=== PATIENT | male | born 1965 | race Caucasian/White ===

== ENCOUNTER 2017-10-01 10:15 | Inpatient (IN) | payer BC ==
[2017-10-01 11:01] VITALS: BMI 25.8
--- NOTE | 2017-10-01 13:04 | HP ---
CIWA Score - CIWA Score Nausea/Vomitin-No Nausea/No Vomiting Muscle Tremors: 4-Moderate,w/Arms Extend Anxiety: 3 Agitation: 3 Paroxysmal Sweats: 3 Orientation: 0-Oriented Tacttile Disturbances: 0-None Auditory Disturbances: 0-None Visual Disturbances: 0-None Headache: 0-None Present CIWA-Ar Total Score: 13 Admission ROS BHS - HPI Chief Complaint: I dont know why i drink too much. Allergies/Adverse Reactions: Allergies Allergy/AdvReac Type Severity Reaction Status Date / Time cefdinir [From Omnicef] Allergy Severe Hives Verified 10/01/17 12:40 History of Present Illness: pt is a 52yr old male with a history of alcohol dependence seeking detox for treatment. Pt is [place] both ears. Exam Limitations: No Limitations - Ebola screening Have you traveled outside of the country in the last 21 days: No (N) Have you had contact with anyone from an Ebola affected area: No Have you been sick,other than usual withdrawal symptoms: No Do you have a fever: No - Review of Systems Constitutional: No Symptoms Reported EENT: reports: Hearing Loss Respiratory: reports: No Symptoms reported Cardiac: reports: No Symptoms Reported GI: reports: No Symptoms Reported : reports: No Symptoms Reported Musculoskeletal: reports: Back Pain Integumentary: reports: No Symptoms Reported Neuro: reports: Headache, Tingling, Tremors Endocrine: reports: Excessive Sweating, Flushing, Intolerance to Cold, Intolerance to Heat Hematology: reports: No Symptoms Reported Psychiatric: reports: Judgement Intact, Orientated x3, Agitated, Anxious Other Systems: Reviewed and Negative Patient History - Patient Medical History Hx Anemia: No Hx Asthma: No Hx Chronic Obstructive Pulmonary Disease (COPD): No Hx Cancer: No Hx Cardiac Disorders: No Hx Congestive Heart Failure: No Hx Hypertension: No Hx Hypercholesterolemia: No Hx Pacemaker: No HX Cerebrovascular Accident: No Hx Seizures: No Hx Dementia: No Hx Diabetes: No Hx Gastrointestinal Disorders: Yes (gastiritis) Hx Liver Disease: No Hx Genitourinary Disorders: No Hx Sexually Transmitted Disorders: No Hx Renal Disease (ESRD): No Hx Thyroid Disease: No Hx Human Immunodeficiency Virus (HIV): No Hx Hepatitis C: No Hx Depression: No Hx Suicide Attempt: No (denies) Hx Bipolar Disorder: No Hx Schizophrenia: No - Patient Surgical History Past Surgical History: No Hx Neurologic Surgery: No Hx Cataract Extraction: No Hx Cardiac Surgery: No Hx Lung Surgery: No Hx Breast Surgery: No Hx Breast Biopsy: No Hx Abdominal Surgery: No Hx Appendectomy: No Hx Cholecystectomy: No Hx Genitourinary Surgery: No Hx Section: No Hx Orthopedic Surgery: No Anesthesia Reaction: No - PPD History Previous Implant?: Yes Documented Results: Negative w/o proof Implanted On Prior [facility] Admission?: No PPD to be Administered?: Yes - Reproductive History Patient is a Female of Child Bearing Age (11 -55 yrs old): No - Smoking Cessation Smoking history: Never smoked Have you smoked in the past 12 months: No Hx Chewing Tobacco Use: No Initiated information on smoking cessation: No - Substance & Tx. History Hx Alcohol Use: Yes Hx Substance Use: No Substance Use Type: Alcohol Hx Substance Use Treatment: No - Substances Abused Alcohol-rum Route: Oral Frequency: Daily Amount used: 2 liters Age of first use: 10 Date of Last Use: 09/30/17 Family Disease History - Family Disease History Family History: Denies Admission Physical Exam S - Vital Signs Vital Signs: Vital Signs - 24 hr 10/01/17 10:58 Temperature 97.8 F Pulse Rate 93 H Respiratory 18 Rate Blood Pressure 136/80 - Physical General Appearance: Yes: Appropriately Dressed, Moderate Distress, Tremorous, Irritable, Sweating, Anxious HEENTM: Yes: Hearing Decreased (both ears [place]) Respiratory: Yes: Lungs Clear, Normal Breath Sounds, No Respiratory Distress Neck: Yes: No masses,lesions,Nodules Breast: Yes: Within Normal Limits Cardiology: Yes: Regular Rhythm, Regular Rate, S1, S2, Tachycardia Abdominal: Yes: Normal Bowel Sounds, Non Tender, Flat Genitourinary: Yes: Within Normal Limits Back: Yes: Normal Inspection Musculoskeletal: Yes: full range of Motion, Gait Steady, Back pain Extremities: Yes: Normal Capillary Refill, Normal Inspection, Non-Tender, Tremors Neurological: Yes: Fully Oriented, Alert, Normal Response Integumentary: Yes: Normal Color Lymphatic: Yes: Within Normal Limits - Diagnostic (1) Alcohol dependence with uncomplicated withdrawal Current Visit: Yes Status: Chronic (2) Gastritis Current Visit: Yes Status: Chronic Qualifiers: Gastritis type: unspecified gastritis Chronicity: unspecified Gastritis bleeding: without bleeding Qualified Code(s): K29.70 - Gastritis, unspecified , without bleeding (3) [place] (hard of hearing) Current Visit: Yes Status: Chronic Qualifiers: Hearing loss type: unspecified Laterality: bilateral Qualified Code(s): H91.93 - Unspecified hearing loss, bilateral Cleared for [facility] Level of Care: Medically Managed Detox Regimen/Protocol: Lib[facility] Breath Alcohol Content Breath Alcohol Content: 0.270 Urine Drug Screen - Results Drug Screen Negative: Yes
[2017-10-01] MEDS ORDERED: MAGNESIUM HYDROX 2400MG/30ML ORAL SUSPENSION 30 ML CUP PO PRN (13:08)
[2017-10-01] MEDS ORDERED: MAGNESIUM CITRATE 300 ML BOTTLE PO PRN (13:08)
[2017-10-01] MEDS ORDERED: IBUPROFEN 400 MG TABLET (FP) PO PRN (13:08)
[2017-10-01] MEDS ORDERED: chlordiazePOXIDE HCL 25 MG CAPSULE PO PRN (13:08)
[2017-10-01] MEDS ORDERED: LOPERAMIDE HCL 2 MG CAPSULE PO PRN (13:08)
[2017-10-01] MEDS ORDERED: hydrOXYzine PAMOATE 50 MG CAPSULE (FP) PO PRN (13:08)
[2017-10-01] MEDS ORDERED: MAG HYDROX/AL HYDROX/SIMETH 30 ML UNIT-DOSE CUP PO PRN (13:08)
[2017-10-01] MEDS ORDERED: MENTHOL/PHENOL 1 EACH UD MM PRN (13:08)
[2017-10-01] MEDS ORDERED: guaiFENesin/D-METHORPHAN HB 10 ML UNIT-DOSE CUPS PO PRN (13:08)
[2017-10-01] MEDS ORDERED: P-EPHED 60MG/TRIPROLIDI 2.5MG TABLET PO PRN (13:08)
[2017-10-01] MEDS ORDERED: ACETAMINOPHEN 325 MG TABLET (FP) PO PRN (13:08)
[2017-10-01] MEDS ORDERED: chlordiazePOXIDE HCL 25 MG CAPSULE PO ONE (14:00)
[2017-10-01 17:16] LABS: HEMATOCRIT 44.6 % (35.4-49); HEMOGLOBIN 14.6 GM/dL (11.7-16.9); MCH 30.5 pg (25.7-33.7); MCHC 32.7 g/dl (32.0-35.9); MEAN CELL VOLUME 93.2 fl (80-96); MEAN PLT VOLUME 7.2 fl (7.5-11.1); PLATELET COUNT 364 K/MM3 (134-434); RBC 4.78 M/mm3 (4.00-5.60); RDW 15.2 % (11.9-15.9); WHITE BLOOD COUNT 8.6 K/mm3 (4.0-10.0)
[2017-10-01 17:19] LABS: URINE APPEARANCE CLEAR; URINE BILIRUBIN NEGATIVE (NEGATIVE); URINE BLOOD NEGATIVE (NEGATIVE); URINE COLOR LTYELLOW; URINE GLUCOSE (UA) NEGATIVE (NEGATIVE); URINE KETONE NEGATIVE (NEGATIVE); URINE LEUK ESTERASE NEGATIVE (NEGATIVE); URINE NITRITE NEGATIVE (NEGATIVE); URINE PROTEIN NEGATIVE (NEGATIVE); URINE UROBILINOGEN NEGATIVE mg/dL (0.2-1.0)
[2017-10-01] MEDS: chlordiazePOXIDE HCL 25 MG CAPSULE PO SCH ×2 (17:22→22:27)
[2017-10-01 17:26] LABS: ALBUMIN 3.9 g/dl (3.4-5.0); ANION GAP 13 (8-16); BLOOD UREA NITROGEN 14 mg/dL (7-18); CALCIUM 8.5 mg/dL (8.5-10.1); CHLORIDE 102 mmol/L (98-107); CO2 26 mmol/L (21-32); CREATININE 0.7 mg/dL (0.7-1.3); GLUCOSE,RANDOM 106 mg/dL (74-106); POTASSIUM 3.7 mmol/L (3.5-5.1); SGOT/AST 118 U/L (15-37); SGPT/ALT 163 U/L (12-78); SODIUM 141 mmol/L (136-145)
[2017-10-01 17:28] LABS: ALK PHOS 79 U/L (45-117); BILIRUBIN,TOTAL 0.6 mg/dL (0.2-1.0); TOT PROT 7.4 g/dl (6.4-8.2)
[2017-10-01] MEDS: RANITIDINE HCL 150 MG TABLET (FP) PO SCH (22:27)
[2017-10-01] MEDS: THIAMINE HCL 100 MG TABLET (FP) PO SCH (22:27)
[2017-10-02] MEDS: chlordiazePOXIDE HCL 25 MG CAPSULE PO SCH ×4 (05:27→22:19)
[2017-10-02] MEDS: RANITIDINE HCL 150 MG TABLET (FP) PO SCH ×2 (11:06→22:19)
[2017-10-02] MEDS: PRENATAL VITAMINS W/ FOLIC ACID TABLET (FP) PO SCH (11:06)
--- NOTE | 2017-10-02 12:57 | PN ---
[facility] CIWA - CIWA Score Nausea/Vomitin Muscle Tremors: 4-Moderate,w/Arms Extend Anxiety: 4-Mod. Anxious/Guarded Agitation: 4-Moderately Restless Paroxysmal Sweats: 3 Orientation: 0-Oriented Tacttile Disturbances: 1-Very Mild Itch/Numbness Auditory Disturbances: 0-None Visual Disturbances: 0-None Headache: 0-None Present CIWA-Ar Total Score: 19 BHS Progress Note (SOAP) Subjective: Tremor, interrupted sleep, sweating Objective: 10/02/17 12:53 Last Vital Signs Temp Pulse Resp BP Pulse Ox 99.7 F H 117 H 18 143/99 10/02/17 10:05 10/02/17 10:05 10/02/17 10:05 10/02/17 10:05 b/p 143/99 Laboratory Tests 10/01/17 10/01/17 10/01/17 13:30 13:30 13:30 WBC 8.6 RBC 4.78 Hgb 14.6 Hct 44.6 MCV 93.2 MCH 30.5 MCHC 32.7 RDW 15.2 Plt Count 364 MPV 7.2 L Sodium 141 Potassium 3.7 Chloride 102 Carbon Dioxide 26 Anion Gap 13 BUN 14 Creatinine 0.7 Creat Clearance w eGFR > 60 Random Glucose 106 Calcium 8.5 Total Bilirubin 0.6 AST 118 H ALT 163 H Alkaline Phosphatase 79 Total Protein 7.4 Albumin 3.9 Urine Color Urine Appearance Urine pH Ur Specific [place] Urine Protein Urine Glucose (UA) Urine Ketones Urine Blood Urine Nitrite Urine Bilirubin Urine Urobilinogen Ur Leukocyte Esterase RPR Titer Nonreactive 10/01/17 15:00 WBC RBC Hgb Hct MCV MCH MCHC RDW Plt Count MPV Sodium Potassium Chloride Carbon Dioxide Anion Gap BUN Creatinine Creat Clearance w eGFR Random Glucose Calcium Total Bilirubin AST ALT Alkaline Phosphatase Total Protein Albumin Urine Color Ltyellow Urine Appearance Clear Urine pH 6.0 Ur Specific [place] 1.019 Urine Protein Negative Urine Glucose (UA) Negative Urine Ketones Negative Urine Blood Negative Urine Nitrite Negative Urine Bilirubin Negative Urine Urobilinogen Negative Ur Leukocyte Esterase Negative RPR Titer Labs noted Assessment: 10/02/17 12:53 Withdrawal symptoms Elevated b/p probably due to withdrawal Plan: Continue detox Encouraged to drink lots of water for hydration Elevated b/p due to alcohol withdrawal: start clonidine 0.1mg PO q8hr prn if b/ p >140/90
[2017-10-02] MEDS ORDERED: cloNIDine HCL 0.1 MG TABLET PO PRN (12:58)
--- NOTE | 2017-10-02 15:19 | EKG ---
Test Reason : Blood Pressure : / mmHG Vent. Rate : 102 BPM Atrial Rate : 102 BPM P-R Int : 150 ms QRS Dur : 086 ms QT Int : 340 ms P-R-T Axes : 044 029 038 degrees QTc Int : 443 ms SINUS TACHYCARDIA OTHERWISE NORMAL ECG NO PREVIOUS ECGS AVAILABLE Confirmed by Joao Mays MD ([id number]) on 10/02/2017 3:19:07 PM Referred By: Kimberly COWAN Confirmed By:Joao Mays MD
[2017-10-02] MEDS: THIAMINE HCL 100 MG TABLET (FP) PO SCH (22:19)
[2017-10-03] MEDS: chlordiazePOXIDE HCL 25 MG CAPSULE PO SCH ×2 (04:34→10:26)
[2017-10-03] MEDS: RANITIDINE HCL 150 MG TABLET (FP) PO SCH ×2 (10:26→22:28)
[2017-10-03] MEDS: PRENATAL VITAMINS W/ FOLIC ACID TABLET (FP) PO SCH (10:26)
--- NOTE | 2017-10-03 15:01 | PN ---
[facility] CIWA - CIWA Score Nausea/Vomitin-No Nausea/No Vomiting Muscle Tremors: 4-Moderate,w/Arms Extend Anxiety: 4-Mod. Anxious/Guarded Agitation: 4-Moderately Restless Paroxysmal Sweats: 1-Minimal Palms Moist Orientation: 0-Oriented Tacttile Disturbances: 3-Moderate Itch/Numb/Burn Auditory Disturbances: 0-None Visual Disturbances: 0-None Headache: 0-None Present CIWA-Ar Total Score: 16 BHS Progress Note (SOAP) Subjective: SLIGHT ANXIETY,TREMORS,SWEATS. Objective: 10/03/17 14:59 Vital Signs Temperature 97.8 F 10/03/17 13:14 Pulse Rate 112 H 10/03/17 13:14 Respiratory Rate 20 10/03/17 13:14 Blood Pressure 150/91 10/03/17 13:14 O2 Sat by Pulse Oximetry (%) Laboratory Last Values WBC 8.6 K/mm3 (4.0-10.0) 10/01/17 13:30 RBC 4.78 M/mm3 (4.00-5.60) 10/01/17 13:30 Hgb 14.6 GM/dL (11.7-16.9) 10/01/17 13:30 Hct 44.6 % (35.4-49) 10/01/17 13:30 MCV 93.2 fl (80-96) 10/01/17 13:30 MCH 30.5 pg (25.7-33.7) 10/01/17 13:30 MCHC 32.7 g/dl (32.0-35.9) 10/01/17 13:30 RDW 15.2 % (11.9-15.9) 10/01/17 13:30 Plt Count 364 K/MM3 (134-434) 10/01/17 13:30 MPV 7.2 fl (7.5-11.1) L 10/01/17 13:30 Sodium 141 mmol/L (136-145) 10/01/17 13:30 Potassium 3.7 mmol/L (3.5-5.1) 10/01/17 13:30 Chloride 102 mmol/L (98-107) 10/01/17 13:30 Carbon Dioxide 26 mmol/L (21-32) 10/01/17 13:30 Anion Gap 13 (8-16) 10/01/17 13:30 BUN 14 mg/dL (7-18) 10/01/17 13:30 Creatinine 0.7 mg/dL (0.7-1.3) 10/01/17 13:30 Creat Clearance w eGFR > 60 (>60) 10/01/17 13:30 Random Glucose 106 mg/dL (74-106) 10/01/17 13:30 Calcium 8.5 mg/dL (8.5-10.1) 10/01/17 13:30 Total Bilirubin 0.6 mg/dL (0.2-1.0) 10/01/17 13:30 AST 118 U/L (15-37) H 10/01/17 13:30 ALT 163 U/L (12-78) H 10/01/17 13:30 Alkaline Phosphatase 79 U/L (45-117) 10/01/17 13:30 Total Protein 7.4 g/dl (6.4-8.2) 10/01/17 13:30 Albumin 3.9 g/dl (3.4-5.0) 10/01/17 13:30 Urine Color Ltyellow 10/01/17 15:00 Urine Appearance Clear 10/01/17 15:00 Urine pH 6.0 (5.0-8.0) 10/01/17 15:00 Ur Specific [place] 1.019 (1.001-1.035) 10/01/17 15:00 Urine Protein Negative (NEGATIVE) 10/01/17 15:00 Urine Glucose (UA) Negative (NEGATIVE) 10/01/17 15:00 Urine Ketones Negative (NEGATIVE) 10/01/17 15:00 Urine Blood Negative (NEGATIVE) 10/01/17 15:00 Urine Nitrite Negative (NEGATIVE) 10/01/17 15:00 Urine Bilirubin Negative (NEGATIVE) 10/01/17 15:00 Urine Urobilinogen Negative mg/dL (0.2-1.0) 10/01/17 15:00 Ur Leukocyte Esterase Negative (NEGATIVE) 10/01/17 15:00 RPR Titer Nonreactive (NONREACTIVE) 10/01/17 13:30 Assessment: 10/03/17 15:00 WITHDRAWAL SX Plan: CONTINUE
[2017-10-03] MEDS ORDERED: chlordiazePOXIDE HCL 25 MG CAPSULE PO ONE (15:03)
[2017-10-03] MEDS: chlordiazePOXIDE 5 MG CAPSULE PO SCH ×2 (16:45→22:28)
[2017-10-03] MEDS: THIAMINE HCL 100 MG TABLET (FP) PO SCH (22:28)
[2017-10-04] MEDS: chlordiazePOXIDE 5 MG CAPSULE PO SCH ×2 (06:15→10:37)
[2017-10-04] MEDS: RANITIDINE HCL 150 MG TABLET (FP) PO SCH ×2 (10:37→22:21)
[2017-10-04] MEDS: PRENATAL VITAMINS W/ FOLIC ACID TABLET (FP) PO SCH (10:37)
--- NOTE | 2017-10-04 12:52 | PN ---
S Progress Note (SOAP) Subjective: Interrupted sleep, anxiety, shakes, constipation Objective: 10/04/17 12:50 Last Vital Signs Temp Pulse Resp BP Pulse Ox 96.9 F L 100 H 18 127/84 10/04/17 09:37 10/04/17 09:37 10/04/17 09:37 10/04/17 09:37 Laboratory Last Values WBC 8.6 K/mm3 (4.0-10.0) 10/01/17 13:30 RBC 4.78 M/mm3 (4.00-5.60) 10/01/17 13:30 Hgb 14.6 GM/dL (11.7-16.9) 10/01/17 13:30 Hct 44.6 % (35.4-49) 10/01/17 13:30 MCV 93.2 fl (80-96) 10/01/17 13:30 MCH 30.5 pg (25.7-33.7) 10/01/17 13:30 MCHC 32.7 g/dl (32.0-35.9) 10/01/17 13:30 RDW 15.2 % (11.9-15.9) 10/01/17 13:30 Plt Count 364 K/MM3 (134-434) 10/01/17 13:30 MPV 7.2 fl (7.5-11.1) L 10/01/17 13:30 Sodium 141 mmol/L (136-145) 10/01/17 13:30 Potassium 3.7 mmol/L (3.5-5.1) 10/01/17 13:30 Chloride 102 mmol/L (98-107) 10/01/17 13:30 Carbon Dioxide 26 mmol/L (21-32) 10/01/17 13:30 Anion Gap 13 (8-16) 10/01/17 13:30 BUN 14 mg/dL (7-18) 10/01/17 13:30 Creatinine 0.7 mg/dL (0.7-1.3) 10/01/17 13:30 Creat Clearance w eGFR > 60 (>60) 10/01/17 13:30 Random Glucose 106 mg/dL (74-106) 10/01/17 13:30 Calcium 8.5 mg/dL (8.5-10.1) 10/01/17 13:30 Total Bilirubin 0.6 mg/dL (0.2-1.0) 10/01/17 13:30 AST 118 U/L (15-37) H 10/01/17 13:30 ALT 163 U/L (12-78) H 10/01/17 13:30 Alkaline Phosphatase 79 U/L (45-117) 10/01/17 13:30 Total Protein 7.4 g/dl (6.4-8.2) 10/01/17 13:30 Albumin 3.9 g/dl (3.4-5.0) 10/01/17 13:30 Urine Color Ltyellow 10/01/17 15:00 Urine Appearance Clear 10/01/17 15:00 Urine pH 6.0 (5.0-8.0) 10/01/17 15:00 Ur Specific [place] 1.019 (1.001-1.035) 10/01/17 15:00 Urine Protein Negative (NEGATIVE) 10/01/17 15:00 Urine Glucose (UA) Negative (NEGATIVE) 10/01/17 15:00 Urine Ketones Negative (NEGATIVE) 10/01/17 15:00 Urine Blood Negative (NEGATIVE) 10/01/17 15:00 Urine Nitrite Negative (NEGATIVE) 10/01/17 15:00 Urine Bilirubin Negative (NEGATIVE) 10/01/17 15:00 Urine Urobilinogen Negative mg/dL (0.2-1.0) 10/01/17 15:00 Ur Leukocyte Esterase Negative (NEGATIVE) 10/01/17 15:00 RPR Titer Nonreactive (NONREACTIVE) 10/01/17 13:30 Labs noted Assessment: 10/04/17 12:51 withdrawal symptoms Plan: Continue detox Increase fluids continue to monitor
[2017-10-04] MEDS: chlordiazePOXIDE HCL 10 MG CAPSULE PO SCH ×2 (17:41→22:21)
[2017-10-04] MEDS: THIAMINE HCL 100 MG TABLET (FP) PO SCH (22:21)
[2017-10-05] MEDS: chlordiazePOXIDE HCL 10 MG CAPSULE PO SCH (05:56)
[2017-10-05 06:24] VITALS: BP 115/75; PULSE 83; TEMP 97
--- NOTE | 2017-10-05 10:36 | DS ---
[facility] Detox Discharge Summary Admission Date: 10/01/17 Discharge Date: 10/05/17 - History Present History: Alcohol Dependence Pertinent Past History: GERD - Physical Exam Results Vital Signs: Vital Signs Temperature 97 F L 10/05/17 06:24 Pulse Rate 83 10/05/17 06:24 Respiratory Rate 18 10/05/17 06:24 Blood Pressure 115/75 10/05/17 06:24 O2 Sat by Pulse Oximetry (%) Pertinent Admission Physical Exam Findings: Withdrawal symptoms Laboratory Tests 10/01/17 10/01/17 10/01/17 13:30 13:30 13:30 WBC 8.6 RBC 4.78 Hgb 14.6 Hct 44.6 MCV 93.2 MCH 30.5 MCHC 32.7 RDW 15.2 Plt Count 364 MPV 7.2 L Sodium 141 Potassium 3.7 Chloride 102 Carbon Dioxide 26 Anion Gap 13 BUN 14 Creatinine 0.7 Creat Clearance w eGFR > 60 Random Glucose 106 Calcium 8.5 Total Bilirubin 0.6 AST 118 H ALT 163 H Alkaline Phosphatase 79 Total Protein 7.4 Albumin 3.9 Urine Color Urine Appearance Urine pH Ur Specific [place] Urine Protein Urine Glucose (UA) Urine Ketones Urine Blood Urine Nitrite Urine Bilirubin Urine Urobilinogen Ur Leukocyte Esterase RPR Titer Nonreactive 10/01/17 15:00 WBC RBC Hgb Hct MCV MCH MCHC RDW Plt Count MPV Sodium Potassium Chloride Carbon Dioxide Anion Gap BUN Creatinine Creat Clearance w eGFR Random Glucose Calcium Total Bilirubin AST ALT Alkaline Phosphatase Total Protein Albumin Urine Color Ltyellow Urine Appearance Clear Urine pH 6.0 Ur Specific [place] 1.019 Urine Protein Negative Urine Glucose (UA) Negative Urine Ketones Negative Urine Blood Negative Urine Nitrite Negative Urine Bilirubin Negative Urine Urobilinogen Negative Ur Leukocyte Esterase Negative RPR Titer Labs noted - Treatment Hospital Course: Detox Protocol Followed, Detoxed Safely, Responded well, Discharged Condition Good - Medication Discharge Medications: Ambulatory Orders Ranitidine HCl [Zantac] 150 mg PO BID 10/01/17 - Diagnosis (1) Elevated blood pressure reading without diagnosis of hypertension Status: Acute (2) Alcohol dependence with uncomplicated withdrawal Status: Acute (3) Gastritis Status: Chronic Qualifiers: Gastritis type: unspecified gastritis Chronicity: unspecified Gastritis bleeding: without bleeding Qualified Code(s): K29.70 - Gastritis, unspecified , without bleeding (4) [place] (hard of hearing) Status: Chronic Qualifiers: Hearing loss type: unspecified Laterality: bilateral Qualified Code(s): H91.93 - Unspecified hearing loss, bilateral - AMA Did Patient Leave Against Medical Advice: No (F/U with PCP within 1 week)
== END 2017-10-05 09:43 | disposition home or self-care (01) | DRG 897 ==
LOC: YASAS 10:15 → Y3N 13:16
PROVIDERS: ADMIT Internal Medicine; ATTEND Internal Medicine
PROC: HZ2ZZZZ Detoxification Services for Substance Abuse Treatment (ICD-10-PCS; principal; 2017-10-01)
DX: F10.230 Alcohol dependence with withdrawal, uncomplicated (principal); R03.0 Elevated blood-pressure reading, without diagnosis of hypertension; K29.70 Gastritis, unspecified, without bleeding; H91.93 Unspecified hearing loss, bilateral
CPT/HCPCS: 36415; 80053; 81003; 85027; 86593; 93005; 93010